=== PATIENT | male | born 1950 | race Caucasian/White ===

== ENCOUNTER 2019-08-19 11:51 | Observation (INO) | payer MEDICARE, OTHER ==
[2019-08-19] MEDS ORDERED: Nitroglycerin 0.4 MG TAB 1 EACH ONE (13:55)
[2019-08-19] MEDS ORDERED: Amlodipine 5 MG TAB ONE (13:55)
[2019-08-19 14:51] LABS: CKMB 2.5 ng/mL (0-6.6)
[2019-08-19 16:05] VITALS: BMI 25.9
[2019-08-19 17:08] LABS: Troponin I 0.042 ng/mL (< 0.028)
[2019-08-19] MEDS ORDERED: Ondansetron PF 4 MG/2 ML Vial IVP PRN (18:11)
[2019-08-19] MEDS ORDERED: Acetaminophen 325 MG TAB PO PRN (18:11)
[2019-08-19] MEDS ORDERED: Lisinopril 10 MG TAB PO SCH (18:30)
[2019-08-19] MEDS ORDERED: Labetalol HCl 100 MG/20 ML VIAL SLOW IVP SCH (18:30)
[2019-08-19] MEDS ORDERED: Cyclobenzaprine 10 MG TAB PO PRN (18:42)
--- NOTE | 2019-08-19 18:51 | PDOC.HHP ---
Hospitalist HPI - History of Present Illness feeling generally unwell History of Present Illness: 68yo M w/ MHx of HTN, BPH, hypothyroidism presents for feeling generally unwell and high blood pressure. [place] well two days prior to presentation, then started feeling generally unwell. Took his blood pressure measurement at home, which was grossly elevated above systolic of 200. Went to [place] [facility], trop intermediate. Patient also reported being febrile and episode of shortness of breath to [facility], so COVID PCR was sent. Was then transfered to [facility]. On encounter, lying comfortably in bed and endorses feeling well now that his blood pressure is lower. Denies headache, chills, night sweats, syncope, presyncope, chest pain, palpitations, dyspnea, cough, abdominal pain, diarrhea, dysuria, focal weakness ED Course: In the ED, found to be grossly hypertensive. Was administed nitro patch and amlodipine. Trop indeterminate. EKG sinus, old anteroseptal q-waves with no signs of acute ischemia. He was admitted to telemetry Hospitalist ROS - Review of Systems Constitutional: denies: fever, chills, sweats, weakness, malaise, other Respiratory: denies: cough, dry, shortness of breath, hemoptysis, SOB with excertion, pleuritic pain, sputum, wheezing, other Cardiovascular: denies: chest pain, palpitations, orthopnea, paroxysmal noc. dyspnea, edema, light headedness, other Gastrointestinal: denies: nausea, vomiting, abdominal pain, diarrhea, constipation, melena, hematochezia, other Genitourinary: denies: dysuria, frequency, incontinence, hematuria, retention, other Hospitalist History - Past Medical History Cardiac: reports: HTN. denies: DC, Syncope Pulmonary: denies: asthma, CVA/TIA/stroke, COPD Gastrointestinal: reports: GERD - Past Surgical History Past Surgical History: reports: no pertinent history - Family History Family History: reports: hypertension - Social History Smoking Status: Former smoker Tobacco Type: cigarettes Alcohol: reports: Rare Drugs: reports: none Living Situation: With Family Activity level: independent ambulation - Exam General Appearance: NAD, awake alert Eye: PERRL, anicteric sclera Neck: no JVD Heart: RRR, no murmur, no gallops, no rubs, murmur present Heart - other findings: 2/5 left 2nd intercostal, decrescendo systolic Respiratory: CTAB, no wheezes, no rales, no ronchi Gastrointestinal: soft, non-tender, non-distended, normal bowel sounds Extremities: no edema Neurological: cranial nerve grossly intact, no focal deficits. negative: facial droop Psychiatric: normal affect, normal behavior, A&O x 3 Hospitalist Results - Labs Lab results: CK-MB (CK-2) 2.5 ng/mL (0-6.6) 08/19/19 13:56 Troponin I 0.042 ng/mL (< 0.028) H 08/19/19 16:30 - EKG Interpretation EKG: sinus, anteroseptal q-wave. no signs of acute ischemia - Radiology Interpretation Chest x-ray Status: image reviewed by me Additional Comment: no acute cardiopulmonary process Hospitalist H&P A/P - Problem (1) Hypertensive emergency Code(s): I16.1 - HYPERTENSIVE EMERGENCY Status: Acute (2) GERD (gastroesophageal reflux disease) Code(s): K21.9 - GASTRO-ESOPHAGEAL REFLUX DISEASE WITHOUT ESOPHAGITIS Status: Acute (3) BPH (benign prostatic hyperplasia) Code(s): N40.0 - BENIGN PROSTATIC HYPERPLASIA WITHOUT LOWER URINRY TRACT SYMP Status: Acute (4) Hypothyroidism Code(s): E03.9 - HYPOTHYROIDISM, UNSPECIFIED Status: Acute - Plan Plan: #hypertensive emergency #Type 2 Demand ischemia -grossly elevated blood pressure, was promptly reduced by nitro patch -patient claims that blood pressure chronically poorly controlled -remove nitro patch -start losartan; patient's home regimen with exception of hydrochlorothiazide ( hypokalemia); start chlorthalidone, verapamil -goal BP ~160/90s within next 24 hours #BPH-resume home regimen #hypothyroidism - " #GERD - pantoprazole 40mg PO qd Dispo/PPx: full code. is surrogate DVT PPx - lovenox GI PPx - PPI for GERD ELOS 1 midnight
[2019-08-19] MEDS ORDERED: Losartan 25 MG TAB PO SCH (19:00)
[2019-08-19] MEDS: Potassium Chloride 20 MEQ TAB PO SCH ×2 (19:27→21:23)
[2019-08-19] MEDS ORDERED: Terazosin HCl 5 MG CAP PO SCH (21:45)
[2019-08-20 05:28] LABS: Anion Gap 13 mmol/L (10-20); BUN (Urea Nitrogen) 25 mg/dL (8.4-25.7); Calc. Creatinine Clearance 79 mL/min (70-130); Calcium 8.5 mg/dL (7.8-10.44); Carbon Dioxide 23 mmol/L (23-31); Chloride 112 mmol/L (98-107); Estimated GFR-MDRD 76; Glucose 95 mg/dL (80-115); Potassium 3.5 mmol/L (3.5-5.1); Sodium 144 mmol/L (136-145)
[2019-08-20] MEDS: Levothyroxine Sodium 50 MCG TAB PO SCH (05:42)
[2019-08-20] MEDS: Terazosin HCl 5 MG CAP PO SCH (08:20)
[2019-08-20] MEDS: Enoxaparin Sodium 30 MG/0.3 ML SYRINGE SC SCH (08:20)
[2019-08-20] MEDS: Finasteride 5 MG TAB PO SCH (08:20)
[2019-08-20] MEDS: Chlorthalidone 25 MG TAB PO SCH (08:21)
[2019-08-20] MEDS: Aspirin 81 mg Enteric Coated Tablet PO SCH (08:21)
[2019-08-20] MEDS: Losartan 25 MG TAB PO SCH (08:21)
[2019-08-20] MEDS ORDERED: Lisinopril 10 MG TAB PO SCH (09:00)
[2019-08-20] MEDS ORDERED: Chlorthalidone 25 MG TAB PO SCH (12:00)
[2019-08-20] MEDS ORDERED: hydrALAZINE 20 MG/ML VIAL SLOW IVP SCH (13:30)
[2019-08-20 13:48] LABS: Troponin I 0.022 ng/mL (< 0.028)
--- NOTE | 2019-08-20 16:41 | PDOC.HOSPP ---
- Subjective Encounter Date: 08/20/19 Encounter Time: 09:00 Subjective: no overnight events. This morning blood pressure better controlled but later in the day grossly elevated, malaise, and small volume vomiting x 3. - Objective Vital Signs & Weight: Vital Signs (12 hours) Temp Pulse Resp BP BP Pulse Ox 08/20/19 16:05 97 F L 94 12 183/82 H 96 08/20/19 12:57 216/102 H 08/20/19 12:28 216/100 H 08/20/19 12:01 74 237/106 H 08/20/19 11:44 68 225/100 H 08/20/19 11:35 66 229/83 H 08/20/19 11:32 96.2 F L 72 12 235/101 H 98 08/20/19 08:43 97.6 F 68 18 146/78 H 96 Weight Weight 176 lb 2 oz I&O: 08/19/19 08/20/19 08/21/19 06:59 06:59 06:59 Intake Total 600 Balance 600 Result Diagrams: 08/20/19 04:49 Hospitalist ROS - Review of Systems Constitutional: reports: malaise. denies: fever, chills, sweats, weakness, other Respiratory: denies: cough, dry, shortness of breath, hemoptysis, SOB with excertion, pleuritic pain, sputum, wheezing, other Cardiovascular: denies: chest pain, palpitations, orthopnea, paroxysmal noc. dyspnea, edema, light headedness, other Gastrointestinal: reports: nausea, vomiting. denies: abdominal pain, diarrhea, constipation, melena, hematochezia - Medication Medications: Active Medications Generic Name Dose Route Start Last Admin Trade Name Freq PRN Reason Stop Dose Admin Aspirin 81 mg 08/20/19 09:00 08/20/19 08:21 Ecotrin PO 81 mg DAILY KARAN Administration Chlorthalidone 12.5 mg 08/20/19 09:00 08/20/19 08:21 [place]ton PO 12.5 mg DAILY KARAN Administration Enoxaparin Sodium 30 mg 08/20/19 09:00 08/20/19 08:20 Lovenox SC 30 mg 0900 KARAN Administration Finasteride 5 mg 08/20/19 09:00 08/20/19 08:20 Proscar PO 5 mg DAILY KARAN Administration Levothyroxine Sodium 50 mcg 08/20/19 06:00 08/20/19 05:42 Synthroid PO 50 mcg 0600 KARAN Administration Losartan Potassium 50 mg 08/20/19 09:00 08/20/19 08:21 Cozaar PO 50 mg DAILY KARAN Administration Pantoprazole Sodium 40 mg 08/20/19 09:00 08/20/19 08:20 Protonix PO 40 mg DAILY KARAN Administration Terazosin HCl 10 mg 08/20/19 09:00 08/20/19 08:20 Hytrin PO 10 mg DAILY KARAN Administration Verapamil HCl 240 mg 08/20/19 09:00 08/20/19 08:20 Calan Sr PO 240 mg DAILY KARAN Administration - Exam General Appearance: NAD, awake alert Heart: RRR, no murmur, no gallops, no rubs, normal peripheral pulses Respiratory: CTAB, no wheezes, no rales, no ronchi, normal chest expansion, no tachypnea, normal percussion Gastrointestinal: soft, non-tender, non-distended, normal bowel sounds, no palpable masses, no hepatomegaly, no splenomegaly, no bruit Extremities: no edema Psychiatric: normal affect, normal behavior, A&O x 3 Hosp A/P (1) Hypertensive emergency Code(s): I16.1 - HYPERTENSIVE EMERGENCY Status: Acute (2) GERD (gastroesophageal reflux disease) Code(s): K21.9 - GASTRO-ESOPHAGEAL REFLUX DISEASE WITHOUT ESOPHAGITIS Status: Acute (3) BPH (benign prostatic hyperplasia) Code(s): N40.0 - BENIGN PROSTATIC HYPERPLASIA WITHOUT LOWER URINRY TRACT SYMP Status: Acute (4) Hypothyroidism Code(s): E03.9 - HYPOTHYROIDISM, UNSPECIFIED Status: Acute - Plan #hypertensive urgency -episodic elevation of blood pressure with flushing; A/w nausea and vomiting -will check serum metanephrines -started chlorthalidone rest of management unchanged ELOS 1 midnight
--- NOTE | 2019-08-20 21:38 | EKG ---
Test Reason : Blood Pressure : / mmHG Vent. Rate : 059 BPM Atrial Rate : 059 BPM P-R Int : 158 ms QRS Dur : 098 ms QT Int : 466 ms P-R-T Axes : 048 013 063 degrees QTc Int : 461 ms Sinus bradycardia Nonspecific T wave abnormality Prolonged QT Abnormal ECG When compared with ECG of 19-AUG-2019 13:09, (Unconfirmed) Premature ventricular complexes are no longer Present Criteria for Septal infarct are no longer Present QT has shortened Confirmed by PRASANNA PARSONS, SFrancisco ([id number]) on 08/20/2019 9:38:28 PM Referred By: MING Confirmed By:DR. Zack MIMS MD
[2019-08-21] MEDS ORDERED: Melatonin 3 MG TAB PO SCH ×2 (02:15→21:00)
[2019-08-21] MEDS: Levothyroxine Sodium 50 MCG TAB PO SCH (05:44)
[2019-08-21] MEDS: Chlorthalidone 25 MG TAB PO SCH (07:57)
[2019-08-21] MEDS: Terazosin HCl 5 MG CAP PO SCH (07:58)
[2019-08-21] MEDS: Aspirin 81 mg Enteric Coated Tablet PO SCH (07:58)
[2019-08-21] MEDS: Finasteride 5 MG TAB PO SCH (07:58)
[2019-08-21] MEDS: Losartan 25 MG TAB PO SCH (07:59)
[2019-08-21] MEDS: Enoxaparin Sodium 30 MG/0.3 ML SYRINGE SC SCH (07:59)
[2019-08-21] MEDS ORDERED: Chlorthalidone 25 MG TAB PO SCH (13:00)
[2019-08-21 15:28] VITALS: BP 110/62
[2019-08-21 15:59] VITALS: TEMP 98.9
[2019-08-22] MEDS ORDERED: Chlorthalidone 25 MG TAB PO SCH (09:00)
--- NOTE | 2019-08-22 11:44 | DIS ---
DATE OF ADMISSION: 08/19/2019 DATE OF DISCHARGE: 08/21/2019 HOSPITAL COURSE: Mr. Magana is a 68-year-old male with a medical history of hypertension, BPH, and hypothyroidism, who presented for feeling generally unwell and high blood pressure. He was diagnosed with hypertensive emergency with type 2 demand ischemia. Blood pressure was promptly reduced, then reduced gradually over the following 24 hours. His general malaise resolved and he was discharged after receiving education regarding his new blood pressure medications and followup with his primary care physician in order to further optimize his blood pressure regimen. PHYSICAL EXAMINATION: VITAL SIGNS: Blood pressure 110/62, pulse 73, respiratory rate 18, oxygen saturation 99% on room air, and temperature 98.9. GENERAL: No apparent distress. Awake and alert. HEART: Regular rate and rhythm. No murmurs, gallops, or rubs. Normal peripheral pulses. RESPIRATORY: Clear to auscultation bilaterally. No wheezes, rales, or rhonchi. Normal chest expansion. No tachypnea. GI: Soft, nontender, nondistended. Normal bowel sounds. EXTREMITIES: No edema. PSYCHIATRIC: Normal affect. Normal behavior. Alert and oriented x3. MEDICATION LIST: New medications: 1. Pantoprazole. 2. Acetaminophen. 3. Chlorthalidone. Continued medications: 1. Zofran p.r.n. 2. Cyclobenzaprine. 3. Aspirin. 4. Verapamil. 5. Terazosin. 6. Losartan. 7. Finasteride. 8. Levothyroxine. Discontinued medications: 1. Potassium. 2. Etodolac. 3. Omeprazole. 4. Niacin. 5. Hydrochlorothiazide. Job ID: [id number]
--- NOTE | 2019-08-23 13:01 | EKG ---
Test Reason : Blood Pressure : / mmHG Vent. Rate : 086 BPM Atrial Rate : 086 BPM P-R Int : 178 ms QRS Dur : 084 ms QT Int : 510 ms P-R-T Axes : 066 -15 054 degrees QTc Int : 610 ms Sinus rhythm with occasional Premature ventricular complexes Septal infarct , age undetermined Prolonged QT Abnormal ECG Confirmed by CHAKA LAMAR DO ([id number]), telegraph editor GLADYS BORGES ([id number]) on 08/23/2019 1:01:23 PM Referred By: Confirmed By:CHAKA LAMAR DO
[2019-08-26 23:35] LABS: Metanephrine,Plasma <10 pg/mL (0-62); Normetanephrine,Pl 61 pg/mL (0-145)
== END 2019-08-21 17:45 | disposition home or self-care (01) ==
LOC: ERS 11:51 → 2SW 14:45
PROVIDERS: ADMIT Internal Medicine; ATTEND Internal Medicine
DX: I16.1 Hypertensive emergency (principal); I10 Essential (primary) hypertension; I24.8 Other forms of acute ischemic heart disease; K21.9 Gastro-esophageal reflux disease without esophagitis; N40.0 Benign prostatic hyperplasia without lower urinary tract symptoms; E03.9 Hypothyroidism, unspecified; R50.9 Fever, unspecified; R06.02 Shortness of breath; Z20.828 Contact with and (suspected) exposure to other viral communicable diseases; Z87.891 Personal history of nicotine dependence; Z79.82 Long term (current) use of aspirin; Z79.899 Other long term (current) drug therapy
CPT/HCPCS: 80048; 82553; 83735; 83835; 84484 ×2; 93005 ×2; 96372 ×2; 96374; 96375; 99284; G0378 ×4; 36415; 93010; J0360; J1650

== ENCOUNTER 2022-10-16 19:31 | Emergency (ER) | payer OTHER ==
[~2022-10-16 19:31] MED LIST: Iopamidol-370 76% 500 ML MDV (1 ML CHARGE) ONE
[2022-10-16] MEDS ORDERED: Morphine 4 MG/ML VIAL ONE (19:53)
[2022-10-16 20:04] LABS: #Basophils 0.1 thou/uL (0.0-0.2); #Eosinphils 0.1 thou/uL (0.0-0.7); #Monocytes 1.1 thou/uL (0.11-0.59); #Neutrophils 14.6 thou/uL (1.40-6.50); %Basophils 0.3 % (0.0-1.0); %Eosinophils 0.6 % (0.0-10.0); %Lymphocytes 10.6 % (21.0-51.0); %Monocytes 6.1 % (0.0-10.0); %Neutrophils 81.5 % (42.0-75.0); Hemoglobin 9.1 g/dL (14.0-18.0); Mean Corpuscular Volume 85.4 fl (78.0-98.0); Mean Platelet Volume 9.2 fL (7.4-10.4); Platelet Count 513 10x3/uL (130-400); RBC Distribution Width 13.5 % (11.5-14.5); Red Blood Cell (RBC) Count 3.14 mill/uL (4.70-6.10); White Blood Cell (WBC) Count 17.9 10x3/uL (4.8-10.8)
[2022-10-16] MEDS ORDERED: Piperacillin/Tazobactam 4.5 GM VIAL ONE (20:11)
[2022-10-16] MEDS ORDERED: Vancomycin 1 GM/200 ML (FROZEN) BAG ONE (20:11)
[2022-10-16 20:27] LABS: CRP (Inflammatory) 10.07 mg/dL (= or < 0.5)
[2022-10-16 20:32] LABS: Bacteria/HPF None Seen HPF (None Seen); Bilirubin Negative (Negative); Blood, Urine Trace (Negative); CAUTI Indications for Culture Dysuria,urgency,freq; Clarity Clear (Clear); Glucose, Urine (Dipstick) Normal (Negative); Ketone, Urine Trace mg/dL (Negative); Leukocyte 25 Leu/uL (Negative); Mucous/LPF Rare LPF (<2+); Nitrite Negative (Negative); Protein, Urine (Dipstick) 20 mg/dL (Neg-Trace); Renal Epithelial 0-3 HPF (None Seen); Specific Gravity, Urine 1.019 (1.002-1.036); Squamous Epithelial None Seen HPF (0-3); Urobilinogen Normal mg/dL (Less than 2)
[2022-10-16 20:36] LABS: Urine Culture Reflex No No
[2022-10-16 21:03] LABS: ALT (SGPT) 17 U/L (8-55); AST (SGOT) 30 U/L (5-34); Albumin 3.1 g/dL (3.4-4.8); Alkaline Phosphatase 53 U/L (40-110); Anion Gap 18 mmol/L (10-20); BUN (Urea Nitrogen) 30 mg/dL (8.4-25.7); Bilirubin, Total 0.2 mg/dL (0.2-1.2); Calc. Creatinine Clearance 0 mL/min (70-130); Calcium 8.6 mg/dL (7.8-10.44); Carbon Dioxide 22 mmol/L (23-31); Chloride 101 mmol/L (98-107); Estimated GFR 70; Globulin 3.8 g/dL (2.4-3.5); Glucose 117 mg/dL (83-110); Protein, Total 6.9 g/dL (5.8-8.1); Sodium 136 mmol/L (136-145)
[2022-10-17] MEDS ORDERED: NOREPINEPHRINE 8 MG/250 ML-D5W 250 ML ONE (01:06)
[2022-10-17] MEDS ORDERED: Ondansetron PF 4 MG/2 ML Vial ONE (01:40)
[2022-10-17] MEDS ORDERED: Ketorolac Tromethamine 30 MG/ML VIAL ONE (02:50)
== END 2022-10-17 03:14 | disposition short-term general hospital (02) ==
LOC: ERS 19:31
DX: A41.9 Sepsis, unspecified organism (principal); R65.20 Severe sepsis without septic shock; K86.3 Pseudocyst of pancreas; D72.829 Elevated white blood cell count, unspecified; I10 Essential (primary) hypertension; E03.9 Hypothyroidism, unspecified; E78.00 Pure hypercholesterolemia, unspecified
CPT/HCPCS: 36556; 71045; 74177; 76705; 80053; 81001; 83605; 83690; 84484; 85025; 85652; 86140; 87040; 93005; 94760; 96361; 96365; 96366; 96375; J1885; J2270; J2405; J2543; J3370-JW; Q9967